=== PATIENT | male | born 1935 | race Caucasian/White ===

== ENCOUNTER 2018-10-10 04:57 | Inpatient (IN) | payer MEDICARE, OTHER ==
[2018-10-10 06:53] LABS: ADD MAN DIFF? NO
[2018-10-10 07:03] LABS: ALANINE AMINOTRANSFERASE 18 IU/L (13-69); ALBUMIN 3.5 g/dl (3.3-4.9); ALBUMIN/GLOBULIN RATIO 0.92; ALKALINE PHOSPHATASE 97 IU/L (42-121); ANION GAP 10 (5-13); ASPARTATE AMINO TRANSFERASE 41 IU/L (15-46); BILIRUBIN,INDIRECT 0.7 mg/dl (0-1.1); BILIRUBIN,TOTAL 0.7 mg/dl (0.2-1.3); BLOOD UREA NITROGEN 12 mg/dl (7-20); CALCIUM 8.1 mg/dl (8.4-10.2); CARBON DIOXIDE 28 mmol/L (21-31); CHLORIDE 103 mmol/L (97-110); CREATININE 0.71 mg/dl (0.61-1.24); GLUCOSE 101 mg/dl (70-220); POTASSIUM 3.9 mmol/L (3.5-5.1); SODIUM 141 mmol/L (135-144); TOTAL PROTEIN 7.3 g/dl (6.1-8.1)
[2018-10-10 07:08] LABS: ABNORMAL IP MESSAGE 1; BASOPHILS % 0.1 % (0.0-2.0); EOSINOPHILS % 0.2 % (0.0-7.0); HEMATOCRIT 25.8 % (42.0-52.0); HEMOGLOBIN 7.5 g/dl (14.0-18.0); LYMPHOCYTES # 1.1 10^3/ul (0.8-2.9); LYMPHOCYTES % 7.3 % (15.0-51.0); MEAN CORPUSCULAR HEMOGLOBIN 20.4 pg (29.0-33.0); MEAN CORPUSCULAR HGB CONC 29.1 g/dl (32.0-37.0); MEAN CORPUSCULAR VOLUME 70.1 fl (82.0-101.0); MEAN PLATELET VOLUME 9.7 fl (7.4-10.4); MONOCYTE # 1.6 10^3/ul (0.3-0.9); MONOCYTES % 10.4 % (0.0-11.0); NEUTROPHIL # 12.5 10^3/ul (1.6-7.5); NEUTROPHILS % 81.7 % (39.0-77.0); PLATELET COUNT 424 10^3/UL (140-415); POSITIVE DIFF @See below; RED BLOOD COUNT 3.68 10^6/ul (4.70-6.10); RED CELL DISTRIBUTION WIDTH 18.9 % (11.5-14.5)
[2018-10-10 07:08] LABS: WHITE BLOOD COUNT 15.3 10^3/ul (4.8-10.8)
[2018-10-10] MEDS: SOD CHLORIDE 0.9% 1,000 ML IV ×2 (07:09→19:44)
[2018-10-10] MEDS: CEFTRIAXONE 1 GM/50 ML (PMX) 50 ML IVPB (07:09)
[2018-10-10] MEDS: LEVOFLOXACIN 500MG/D5W (PMX) 100 ML IVPB (08:11)
[2018-10-10] MEDS ORDERED: ONDANSETRON 4 MG INJ IV (11:30)
[2018-10-10] MEDS: ACETAMINOPHEN 325 MG TAB PO ×3 (11:45→19:45)
[2018-10-10] MEDS ORDERED: ACETAMINOPHEN 650MG/20.3ML CUP (11:48)
[2018-10-10 12:48] LABS: ADD UMIC YES; UR ASCORBIC ACID NEGATIVE (NEGATIVE); UR BILIRUBIN (Dip) NEGATIVE (NEGATIVE); UR BLOOD (Dip) 2+ mg/dL (NEGATIVE); UR CLARITY CLEAR (CLEAR); UR COLOR YELLOW (YELLOW); UR GLUCOSE (Dip) NEGATIVE (NEGATIVE); UR KETONES (Dip) TRACE mg/dL (NEGATIVE); UR LEUKOCYTE ESTERASE (Dip) NEGATIVE Leu/ul (NEGATIVE); UR MUCUS FEW /HPF (NONE SEEN); UR NITRITE (Dip) NEGATIVE (NEGATIVE); UR RBC 67 /HPF (0-5); UR SPECIFIC GRAVITY (Dip) 1.016 (1.003-1.030); UR TOTAL PROTEIN (Dip) NEGATIVE (NEGATIVE); UR UROBILINOGEN (Dip) NEGATIVE (NEGATIVE); UR WBC 4 /HPF (0-5)
[2018-10-10] MEDS: CARBIDOPA/LEVODOPA (25/100) TAB PO ×2 (14:30→20:47)
[2018-10-10 14:48] LABS: LACTIC ACID 0.9 mmol/L (0.5-2.0)
[2018-10-10] MEDS: PANTOPRAZOLE 40 MG INJ IV (17:44)
[2018-10-10] MEDS: DOCUSATE SODIUM 100 MG CAP PO (20:47)
[2018-10-11] MEDS: LEVOFLOXACIN 500MG/D5W (PMX) 100 ML IVPB (05:23)
[2018-10-11] MEDS: PANTOPRAZOLE 40 MG INJ IV ×2 (05:23→17:59)
[2018-10-11 06:06] LABS: ADD MAN DIFF? NO
[2018-10-11 06:08] LABS: WHITE BLOOD COUNT 12.4 10^3/ul (4.8-10.8)
[2018-10-11 06:08] LABS: ABNORMAL IP MESSAGE 1; BASOPHILS % 0.2 % (0.0-2.0); EOSINOPHILS # 0.1 10^3/ul (0.0-0.5); EOSINOPHILS % 0.9 % (0.0-7.0); HEMATOCRIT 24.9 % (42.0-52.0); HEMOGLOBIN 7.2 g/dl (14.0-18.0); LYMPHOCYTES # 1.2 10^3/ul (0.8-2.9); LYMPHOCYTES % 9.6 % (15.0-51.0); MEAN CORPUSCULAR HEMOGLOBIN 20.8 pg (29.0-33.0); MEAN CORPUSCULAR HGB CONC 28.9 g/dl (32.0-37.0); MEAN PLATELET VOLUME 9.6 fl (7.4-10.4); MONOCYTE # 1.3 10^3/ul (0.3-0.9); MONOCYTES % 10.8 % (0.0-11.0); NEUTROPHIL # 9.7 10^3/ul (1.6-7.5); NEUTROPHILS % 78.2 % (39.0-77.0); PLATELET COUNT 392 10^3/UL (140-415); POSITIVE DIFF @See below; RED BLOOD COUNT 3.46 10^6/ul (4.70-6.10); RED CELL DISTRIBUTION WIDTH 19.6 % (11.5-14.5)
[2018-10-11] MEDS: CEFTRIAXONE 1 GM/50 ML (PMX) 50 ML IVPB (06:38)
[2018-10-11 06:55] LABS: ALANINE AMINOTRANSFERASE 9 IU/L (13-69); ALBUMIN 3.1 g/dl (3.3-4.9); ALBUMIN/GLOBULIN RATIO 0.88; ALKALINE PHOSPHATASE 84 IU/L (42-121); ANION GAP 10 (5-13); ASPARTATE AMINO TRANSFERASE 29 IU/L (15-46); BILIRUBIN,INDIRECT 0.4 mg/dl (0-1.1); BILIRUBIN,TOTAL 0.4 mg/dl (0.2-1.3); BLOOD UREA NITROGEN 9 mg/dl (7-20); CARBON DIOXIDE 29 mmol/L (21-31); CHLORIDE 105 mmol/L (97-110); CREATININE 0.66 mg/dl (0.61-1.24); GLUCOSE 99 mg/dl (70-220); POTASSIUM 3.8 mmol/L (3.5-5.1); SODIUM 144 mmol/L (135-144); TOTAL PROTEIN 6.6 g/dl (6.1-8.1)
[2018-10-11 07:07] LABS: LACTIC ACID 1.1 mmol/L (0.5-2.0)
[2018-10-11 07:21] LABS: IRON < 10 ug/dl (35-150)
[2018-10-11 07:51] LABS: TOTAL IRON BINDING CAPACITY 314 ug/dl (241-421)
[2018-10-11] MEDS: ALBUTEROL 0.083% (NEB) 2.5 MG/3 ML AMP HHN ×2 (08:55→20:26)
[2018-10-11] MEDS: CARBIDOPA/LEVODOPA (25/100) TAB PO ×3 (09:41→20:38)
[2018-10-11] MEDS: DOCUSATE SODIUM 100 MG CAP PO ×2 (09:41→20:38)
[2018-10-11] MEDS: AMLODIPINE 5 MG TAB PO (09:42)
[2018-10-11] MEDS: ACETAMINOPHEN 325 MG TAB PO (13:20)
[2018-10-11 14:01] LABS: IMMEDIATE SPIN CROSSMATCH 1 2
[2018-10-12] MEDS: LEVOFLOXACIN 500MG/D5W (PMX) 100 ML IVPB (06:01)
[2018-10-12] MEDS: CEFTRIAXONE 1 GM/50 ML (PMX) 50 ML IVPB (06:01)
[2018-10-12] MEDS: PANTOPRAZOLE 40 MG INJ IV ×2 (06:01→17:40)
[2018-10-12] MEDS: MAGNESIUM HYDROXIDE 30ML CUP PO (06:01)
[2018-10-12 06:03] LABS: ADD MAN DIFF? NO
[2018-10-12 06:06] LABS: BASOPHILS % 0.1 % (0.0-2.0); EOSINOPHILS # 0.2 10^3/ul (0.0-0.5); EOSINOPHILS % 2.8 % (0.0-7.0); HEMATOCRIT 32.2 % (42.0-52.0); HEMOGLOBIN 9.8 g/dl (14.0-18.0); LYMPHOCYTES % 12.9 % (15.0-51.0); MEAN CORPUSCULAR HEMOGLOBIN 22.5 pg (29.0-33.0); MEAN CORPUSCULAR HGB CONC 30.4 g/dl (32.0-37.0); MEAN PLATELET VOLUME 9.5 fl (7.4-10.4); MONOCYTE # 0.7 10^3/ul (0.3-0.9); MONOCYTES % 8.1 % (0.0-11.0); NEUTROPHILS % 75.7 % (39.0-77.0); PLATELET COUNT 403 10^3/UL (140-415); RED BLOOD COUNT 4.35 10^6/ul (4.70-6.10); RED CELL DISTRIBUTION WIDTH 19.3 % (11.5-14.5)
[2018-10-12 06:43] LABS: ALANINE AMINOTRANSFERASE 13 IU/L (13-69); ALBUMIN 3.1 g/dl (3.3-4.9); ALBUMIN/GLOBULIN RATIO 0.93; ALKALINE PHOSPHATASE 78 IU/L (42-121); ANION GAP 6 (5-13); ASPARTATE AMINO TRANSFERASE 21 IU/L (15-46); BILIRUBIN,INDIRECT 0.8 mg/dl (0-1.1); BILIRUBIN,TOTAL 0.8 mg/dl (0.2-1.3); BLOOD UREA NITROGEN 6 mg/dl (7-20); CALCIUM 8.1 mg/dl (8.4-10.2); CARBON DIOXIDE 33 mmol/L (21-31); CHLORIDE 103 mmol/L (97-110); CREATININE 0.63 mg/dl (0.61-1.24); GLUCOSE 104 mg/dl (70-220); MAGNESIUM 2.3 mg/dl (1.7-2.5); POTASSIUM 3.8 mmol/L (3.5-5.1); SODIUM 142 mmol/L (135-144); TOTAL PROTEIN 6.4 g/dl (6.1-8.1)
[2018-10-12] MEDS: AMLODIPINE 5 MG TAB PO (08:49)
[2018-10-12] MEDS: CARBIDOPA/LEVODOPA (25/100) TAB PO ×3 (08:49→20:43)
[2018-10-12] MEDS: DOCUSATE SODIUM 100 MG CAP PO ×2 (08:49→20:43)
[2018-10-12] MEDS: ALBUTEROL 0.083% (NEB) 2.5 MG/3 ML AMP HHN ×2 (10:20→20:50)
[2018-10-12] MEDS: LORAZEPAM 0.5 MG TAB PO (11:07)
[2018-10-12] MEDS: GUAIFENESIN LA 600 MG TABSR PO (14:59)
[2018-10-12] MEDS: BARIUM SULFATE 135 ML (E-Z HD) PO (18:54)
[2018-10-13] MEDS: LEVALBUTEROL (NEB) 1.25 MG/0.5 ML AMP HHN ×3 (00:37→16:00)
[2018-10-13] MEDS: PANTOPRAZOLE 40 MG INJ IV ×2 (05:11→17:42)
[2018-10-13] MEDS: LEVOFLOXACIN 500MG/D5W (PMX) 100 ML IVPB (05:11)
[2018-10-13 06:27] LABS: ADD MAN DIFF? NO; BASOPHILS % 0.2 % (0.0-2.0); EOSINOPHILS # 0.3 10^3/ul (0.0-0.5); EOSINOPHILS % 3.9 % (0.0-7.0); HEMATOCRIT 35.1 % (42.0-52.0); HEMOGLOBIN 10.4 g/dl (14.0-18.0); LYMPHOCYTES # 1.3 10^3/ul (0.8-2.9); LYMPHOCYTES % 15.7 % (15.0-51.0); MEAN CORPUSCULAR HEMOGLOBIN 22.4 pg (29.0-33.0); MEAN CORPUSCULAR HGB CONC 29.6 g/dl (32.0-37.0); MEAN CORPUSCULAR VOLUME 75.5 fl (82.0-101.0); MEAN PLATELET VOLUME 9.6 fl (7.4-10.4); MONOCYTE # 0.5 10^3/ul (0.3-0.9); MONOCYTES % 6.3 % (0.0-11.0); NEUTROPHIL # 6.2 10^3/ul (1.6-7.5); NEUTROPHILS % 73.5 % (39.0-77.0); PLATELET COUNT 446 10^3/UL (140-415); RED BLOOD COUNT 4.65 10^6/ul (4.70-6.10)
[2018-10-13 06:27] LABS: WHITE BLOOD COUNT 8.5 10^3/ul (4.8-10.8)
[2018-10-13] MEDS: CEFTRIAXONE 1 GM/50 ML (PMX) 50 ML IVPB (06:38)
[2018-10-13] MEDS: AMLODIPINE 5 MG TAB PO (08:29)
[2018-10-13] MEDS: DOCUSATE SODIUM 100 MG CAP PO ×2 (08:29→20:52)
[2018-10-13] MEDS: CARBIDOPA/LEVODOPA (25/100) TAB PO ×3 (08:29→20:52)
[2018-10-13 10:07] LABS: OCCULT BLOOD STOOL NEGATIVE (NEGATIVE)
[2018-10-13] MEDS: ALBUTEROL 0.083% (NEB) 2.5 MG/3 ML AMP HHN ×2 (14:08→20:33)
[2018-10-13] MEDS: SOD FERRIC GLUC COMPLX 125 MG in SOD CHLORIDE 0.9% 100 ML IVPB (17:42)
[2018-10-14] MEDS: METHYLPREDNISOLONE 125 MG INJ IV (00:09)
[2018-10-14] MEDS: LEVALBUTEROL (NEB) 1.25 MG/0.5 ML AMP HHN ×3 (01:55→15:35)
[2018-10-14] MEDS: hydrALAzine 20 MG INJ IV (04:20)
[2018-10-14] MEDS: LEVOFLOXACIN 500MG/D5W (PMX) 100 ML IVPB (05:03)
[2018-10-14 06:03] LABS: WHITE BLOOD COUNT 6.8 10^3/ul (4.8-10.8)
[2018-10-14 06:03] LABS: ABNORMAL IP MESSAGE 1; HEMATOCRIT 35.9 % (42.0-52.0); HEMOGLOBIN 10.8 g/dl (14.0-18.0); MEAN CORPUSCULAR HEMOGLOBIN 22.4 pg (29.0-33.0); MEAN CORPUSCULAR HGB CONC 30.1 g/dl (32.0-37.0); MEAN CORPUSCULAR VOLUME 74.3 fl (82.0-101.0); MEAN PLATELET VOLUME 9.3 fl (7.4-10.4); PLATELET COUNT 474 10^3/UL (140-415); POSITIVE DIFF @See below; RED BLOOD COUNT 4.83 10^6/ul (4.70-6.10); RED CELL DISTRIBUTION WIDTH 21.4 % (11.5-14.5)
[2018-10-14] MEDS: CEFTRIAXONE 1 GM/50 ML (PMX) 50 ML IVPB (06:21)
[2018-10-14] MEDS: PANTOPRAZOLE 40 MG INJ IV ×2 (06:22→18:51)
[2018-10-14 06:25] LABS: ADD MAN DIFF? YES
[2018-10-14 07:36] LABS: ANISOCYTOSIS 1+ (0-0); BAND NEUTROPHILS #M 0.1 10^3/ul (0.0-0.6); BAND NEUTROPHILS % (M) 2 % (0-4); LYMPHOCYTES % (M) 1 % (15-51); MICROCYTOSIS 1+ (0-0); PLATELET ESTIMATE INCREASED; POIKILOCYTOSIS 1+ (0-0); POLYCHROMASIA 1+ (0-0); REACTIVE LYMPHOCYTES #M 0.2 10^3/ul (0.0-0.0); REACTIVE LYMPHOCYTES% (M) 3 % (0-0); SEG NEUT #M 6.4 10^3/ul (1.6-7.5); SEGMENTED NEUTROPHILS (M) % 94 % (39-77); SMUDGE%M 3 % (0-0)
[2018-10-14] MEDS: DOCUSATE SODIUM 100 MG CAP PO ×2 (08:23→21:12)
[2018-10-14] MEDS: AMLODIPINE 5 MG TAB PO (08:23)
[2018-10-14] MEDS: CARBIDOPA/LEVODOPA (25/100) TAB PO ×2 (08:23→21:12)
[2018-10-14] MEDS: ACETYLCYSTEINE 20% 4 ML VIAL NEB ×3 (08:33→15:33)
[2018-10-14] MEDS: SOD FERRIC GLUC COMPLX 125 MG in SOD CHLORIDE 0.9% 100 ML IVPB (16:37)
[2018-10-15] MEDS: LEVALBUTEROL (NEB) 1.25 MG/0.5 ML AMP HHN
[2018-10-15] MEDS: PANTOPRAZOLE 40 MG INJ IV ×2 (05:31→17:00)
[2018-10-15] MEDS: LEVOFLOXACIN 500MG/D5W (PMX) 100 ML IVPB (05:31)
[2018-10-15 06:16] LABS: ADD MAN DIFF? NO
[2018-10-15 06:30] LABS: WHITE BLOOD COUNT 11.7 10^3/ul (4.8-10.8)
[2018-10-15 06:30] LABS: ABNORMAL IP MESSAGE 1; BASOPHILS % 0.2 % (0.0-2.0); EOSINOPHILS # 0.1 10^3/ul (0.0-0.5); EOSINOPHILS % 0.4 % (0.0-7.0); HEMATOCRIT 32.4 % (42.0-52.0); HEMOGLOBIN 9.9 g/dl (14.0-18.0); LYMPHOCYTES # 1.8 10^3/ul (0.8-2.9); LYMPHOCYTES % 15.5 % (15.0-51.0); MEAN CORPUSCULAR HEMOGLOBIN 22.8 pg (29.0-33.0); MEAN CORPUSCULAR HGB CONC 30.6 g/dl (32.0-37.0); MEAN CORPUSCULAR VOLUME 74.7 fl (82.0-101.0); MEAN PLATELET VOLUME 9.3 fl (7.4-10.4); MONOCYTE # 0.8 10^3/ul (0.3-0.9); NEUTROPHIL # 8.9 10^3/ul (1.6-7.5); NEUTROPHILS % 76.6 % (39.0-77.0); PLATELET COUNT 490 10^3/UL (140-415); POSITIVE DIFF @See below; RED BLOOD COUNT 4.34 10^6/ul (4.70-6.10); RED CELL DISTRIBUTION WIDTH 22.1 % (11.5-14.5)
[2018-10-15 07:05] LABS: ANION GAP 3 (5-13); BLOOD UREA NITROGEN 26 mg/dl (7-20); CARBON DIOXIDE 38 mmol/L (21-31); CHLORIDE 101 mmol/L (97-110); CREATININE 0.71 mg/dl (0.61-1.24); GLUCOSE 100 mg/dl (70-220); MAGNESIUM 2.6 mg/dl (1.7-2.5); SODIUM 142 mmol/L (135-144)
[2018-10-15] MEDS: ACETYLCYSTEINE 20% 4 ML VIAL NEB ×4 (08:00→23:17)
[2018-10-15] MEDS: DOCUSATE SODIUM 100 MG CAP PO ×2 (08:20→20:39)
[2018-10-15] MEDS: AMLODIPINE 5 MG TAB PO (08:22)
[2018-10-15] MEDS: CARBIDOPA/LEVODOPA (25/100) TAB PO ×2 (08:22→20:38)
[2018-10-15] MEDS: CEFUROXIME 250 MG TAB PO ×2 (10:07→20:39)
[2018-10-15] MEDS: ALBUTEROL 0.083% (NEB) 2.5 MG/3 ML AMP HHN ×4 (12:00→23:18)
[2018-10-15] MEDS: SOD FERRIC GLUC COMPLX 125 MG in SOD CHLORIDE 0.9% 100 ML IVPB (17:01)
[2018-10-16] MEDS: hydrALAzine 20 MG INJ IV (04:33)
[2018-10-16] MEDS: LEVOFLOXACIN 500MG/D5W (PMX) 100 ML IVPB (05:00)
[2018-10-16] MEDS: PANTOPRAZOLE 40 MG INJ IV ×2 (05:00→17:35)
[2018-10-16 05:31] LABS: ADD MAN DIFF? NO
[2018-10-16 05:42] LABS: WHITE BLOOD COUNT 8.5 10^3/ul (4.8-10.8)
[2018-10-16 05:42] LABS: ABNORMAL IP MESSAGE 1; BASOPHILS % 0.4 % (0.0-2.0); EOSINOPHILS # 0.4 10^3/ul (0.0-0.5); HEMATOCRIT 34.5 % (42.0-52.0); HEMOGLOBIN 10.3 g/dl (14.0-18.0); LYMPHOCYTES # 2.2 10^3/ul (0.8-2.9); LYMPHOCYTES % 25.7 % (15.0-51.0); MEAN CORPUSCULAR HEMOGLOBIN 22.6 pg (29.0-33.0); MEAN CORPUSCULAR HGB CONC 29.9 g/dl (32.0-37.0); MEAN CORPUSCULAR VOLUME 75.8 fl (82.0-101.0); MEAN PLATELET VOLUME 9.3 fl (7.4-10.4); MONOCYTE # 0.6 10^3/ul (0.3-0.9); MONOCYTES % 7.2 % (0.0-11.0); NEUTROPHIL # 5.1 10^3/ul (1.6-7.5); NEUTROPHILS % 60.5 % (39.0-77.0); PLATELET COUNT 482 10^3/UL (140-415); POSITIVE DIFF @See below; RED BLOOD COUNT 4.55 10^6/ul (4.70-6.10); RED CELL DISTRIBUTION WIDTH 23.1 % (11.5-14.5)
[2018-10-16 06:12] LABS: ANION GAP 8 (5-13); BLOOD UREA NITROGEN 16 mg/dl (7-20); CALCIUM 8.5 mg/dl (8.4-10.2); CARBON DIOXIDE 34 mmol/L (21-31); CHLORIDE 101 mmol/L (97-110); CREATININE 0.64 mg/dl (0.61-1.24); GLUCOSE 101 mg/dl (70-220); POTASSIUM 4.2 mmol/L (3.5-5.1); SODIUM 143 mmol/L (135-144)
[2018-10-16] MEDS: IOHEXOL 300MG/ML 150 ML BTL (08:00)
[2018-10-16] MEDS: SOD CHLORIDE 0.9% 100 ML (08:00)
[2018-10-16] MEDS: AMLODIPINE 5 MG TAB PO (08:18)
[2018-10-16] MEDS: CARBIDOPA/LEVODOPA (25/100) TAB PO ×2 (08:18→20:35)
[2018-10-16] MEDS: CEFUROXIME 250 MG TAB PO ×2 (08:18→20:35)
[2018-10-16] MEDS: DOCUSATE SODIUM 100 MG CAP PO ×2 (08:18→20:35)
[2018-10-16] MEDS: ALBUTEROL 0.083% (NEB) 2.5 MG/3 ML AMP HHN ×3 (08:41→19:47)
[2018-10-16] MEDS: ACETYLCYSTEINE 20% 4 ML VIAL NEB (08:41)
[2018-10-16] MEDS: SOD CHLORIDE 0.9% 1,000 ML IV (16:11)
[2018-10-17] MEDS: SOD CHLORIDE 0.9% 1,000 ML IV ×2 (03:51→10:50)
[2018-10-17] MEDS: PANTOPRAZOLE 40 MG INJ IV ×2 (05:41→17:44)
[2018-10-17] MEDS: LEVOFLOXACIN 500 MG TAB PO (05:41)
[2018-10-17 07:50] LABS: ADD MAN DIFF? NO
[2018-10-17 07:52] LABS: WHITE BLOOD COUNT 7.6 10^3/ul (4.8-10.8)
[2018-10-17 07:52] LABS: ABNORMAL IP MESSAGE 1; BASOPHILS % 0.4 % (0.0-2.0); EOSINOPHILS # 0.3 10^3/ul (0.0-0.5); EOSINOPHILS % 3.7 % (0.0-7.0); HEMATOCRIT 34.2 % (42.0-52.0); HEMOGLOBIN 10.1 g/dl (14.0-18.0); LYMPHOCYTES # 1.2 10^3/ul (0.8-2.9); LYMPHOCYTES % 16.3 % (15.0-51.0); MEAN CORPUSCULAR HEMOGLOBIN 22.8 pg (29.0-33.0); MEAN CORPUSCULAR HGB CONC 29.5 g/dl (32.0-37.0); MEAN CORPUSCULAR VOLUME 77.2 fl (82.0-101.0); MEAN PLATELET VOLUME 9.1 fl (7.4-10.4); MONOCYTE # 0.5 10^3/ul (0.3-0.9); MONOCYTES % 5.9 % (0.0-11.0); NEUTROPHIL # 5.6 10^3/ul (1.6-7.5); NEUTROPHILS % 73.2 % (39.0-77.0); PLATELET COUNT 439 10^3/UL (140-415); POSITIVE DIFF @See below; RED BLOOD COUNT 4.43 10^6/ul (4.70-6.10); RED CELL DISTRIBUTION WIDTH 23.5 % (11.5-14.5)
[2018-10-17 08:14] LABS: ANION GAP 6 (5-13); BLOOD UREA NITROGEN 12 mg/dl (7-20); CALCIUM 8.3 mg/dl (8.4-10.2); CARBON DIOXIDE 32 mmol/L (21-31); CHLORIDE 104 mmol/L (97-110); CREATININE 0.64 mg/dl (0.61-1.24); GLUCOSE 120 mg/dl (70-220); POTASSIUM 4.1 mmol/L (3.5-5.1); SODIUM 142 mmol/L (135-144)
[2018-10-17] MEDS: ALBUTEROL 0.083% (NEB) 2.5 MG/3 ML AMP HHN ×3 (09:15→19:58)
[2018-10-17] MEDS: CEFUROXIME 250 MG TAB PO ×2 (09:29→20:41)
[2018-10-17] MEDS: DOCUSATE SODIUM 100 MG CAP PO ×2 (09:30→20:38)
[2018-10-17] MEDS: CARBIDOPA/LEVODOPA (25/100) TAB PO ×2 (09:30→20:38)
[2018-10-17] MEDS: AMLODIPINE 5 MG TAB PO (09:38)
[2018-10-18 05:31] LABS: ADD MAN DIFF? NO
[2018-10-18 05:39] LABS: WHITE BLOOD COUNT 9.7 10^3/ul (4.8-10.8)
[2018-10-18 05:39] LABS: ABNORMAL IP MESSAGE 1; BASOPHILS % 0.4 % (0.0-2.0); EOSINOPHILS # 0.5 10^3/ul (0.0-0.5); EOSINOPHILS % 4.8 % (0.0-7.0); HEMATOCRIT 32.8 % (42.0-52.0); HEMOGLOBIN 10.1 g/dl (14.0-18.0); LYMPHOCYTES # 1.8 10^3/ul (0.8-2.9); LYMPHOCYTES % 18.9 % (15.0-51.0); MEAN CORPUSCULAR HEMOGLOBIN 23.4 pg (29.0-33.0); MEAN CORPUSCULAR HGB CONC 30.8 g/dl (32.0-37.0); MEAN CORPUSCULAR VOLUME 75.9 fl (82.0-101.0); MONOCYTE # 0.5 10^3/ul (0.3-0.9); MONOCYTES % 5.1 % (0.0-11.0); NEUTROPHIL # 6.8 10^3/ul (1.6-7.5); NEUTROPHILS % 70.3 % (39.0-77.0); PLATELET COUNT 431 10^3/UL (140-415); POSITIVE DIFF @See below; RED BLOOD COUNT 4.32 10^6/ul (4.70-6.10); RED CELL DISTRIBUTION WIDTH 24.2 % (11.5-14.5)
[2018-10-18] MEDS: LEVOFLOXACIN 500 MG TAB PO (06:04)
[2018-10-18 06:35] LABS: ANION GAP 5 (5-13); BLOOD UREA NITROGEN 12 mg/dl (7-20); CALCIUM 8.4 mg/dl (8.4-10.2); CARBON DIOXIDE 33 mmol/L (21-31); CHLORIDE 101 mmol/L (97-110); CREATININE 0.62 mg/dl (0.61-1.24); GLUCOSE 100 mg/dl (70-220); MAGNESIUM 2.4 mg/dl (1.7-2.5); PHOSPHORUS 3.2 mg/dl (2.5-4.9); POTASSIUM 4.1 mmol/L (3.5-5.1); SODIUM 139 mmol/L (135-144)
[2018-10-18] MEDS: DOCUSATE SODIUM 100 MG CAP PO (09:01)
[2018-10-18] MEDS: AMLODIPINE 5 MG TAB PO (09:01)
[2018-10-18] MEDS: CEFUROXIME 250 MG TAB PO (09:01)
[2018-10-18] MEDS: CARBIDOPA/LEVODOPA (25/100) TAB PO (09:01)
[2018-10-18] MEDS: ALBUTEROL 0.083% (NEB) 2.5 MG/3 ML AMP HHN ×2 (09:36→11:32)
[2018-10-18] MEDS ORDERED: PANTOPRAZOLE 40 MG INJ IV (18:00)
[2018-10-18] MEDS: PANTOPRAZOLE (EC) 40 MG TAB PO (18:39)
[2018-10-19] MEDS ORDERED: LEVOFLOXACIN 500 MG TAB PO (06:00)
== END 2018-10-18 19:50 | DRG 871 ==
LOC: E/R 04:57 → 6WM 11:05
PROVIDERS: Internal Medicine
PROC: 30233N1 Transfusion of Nonautologous Red Blood Cells into Peripheral Vein, Percutaneous Approach (ICD-10-PCS; principal; 2018-10-11)
DX: A41.9 Sepsis, unspecified organism (principal); J18.9 Pneumonia, unspecified organism; G93.41 Metabolic encephalopathy; K92.1 Melena; N39.0 Urinary tract infection, site not specified; D62 Acute posthemorrhagic anemia; J47.1 Bronchiectasis with (acute) exacerbation; G20 Parkinson's disease; R13.10 Dysphagia, unspecified; I10 Essential (primary) hypertension; K21.9 Gastro-esophageal reflux disease without esophagitis; M48.061 Spinal stenosis, lumbar region without neurogenic claudication; K59.09 Other constipation; G47.00 Insomnia, unspecified; D50.9 Iron deficiency anemia, unspecified; Z87.891 Personal history of nicotine dependence
CPT/HCPCS: 36415; 36430; 71045; 71260; 74230; 80048; 80053; 81001; 82270; 83540; 83605; 83735; 84100; 85025; 86850; 86900; 86901; 86920; 87040; 87086; 90686; 92526; 92610; 92611; 93306; 94640; 94664; 94667; 94668; 96365; 96367; 97110; 97116; 97162; 97530; 99285-25